=== PATIENT | male | born 1935 | race Caucasian/White ===

== ENCOUNTER 2016-10-22 18:27 | Emergency (ER) | payer MEDICARE, OTHER ==
--- NOTE | 2016-10-22 18:44 | EDM.PDOC ---
ED HPI Trauma - General Chief Complaint: General Stated Complaint: WRIST INJURY Time Seen by Provider: 10/22/16 18:30 Source: Reports: Patient, Family History Limitations: Reports: No limitations - History of Present Illness INITIAL COMMENTS - FREE TEXT/NARRATIVE: Mary was removing a sliding screen door 1 day ago when the door fell striking onto the dorsum of L hand. He did not fall, and there was no LOC. There has been some progressive achiness of the L hand radiating into the L wrist and forearm today, without weakness or numbness. He has tried no meds. Allergies/ADRs: Allergies No Known Allergies Allergy (Verified 10/22/16 18:53) Home Medications: Ambulatory Orders . [Unable to Verify Home Med List] 10/22/16 [Confirmed 10/22/16] Review of Systems - Review of Systems Review Of Systems: See Below Constitutional: Reports: no symptoms Eyes: Reports: no symptoms Ears: Reports: no symptoms Nose: Reports: no symptoms Mouth/Throat: Reports: no symptoms Respiratory: Reports: No Symptoms Cardiovascular: Reports: no symptoms GI/Abdominal: Reports: No symptoms Genitourinary: Reports: no symptoms Musculoskeletal: Reports: hand pain (left, radiating into L wrist and forearm) Skin: Reports: bruising (nose and lip from brushing) Neurological: Reports: No Symptoms Psychiatric: Reports: no symptoms Trauma Exam - Physical Exam Exam: See Below Exam Limited By: No limitations General Appearance: Reports: alert, WD/WN, no apparent distress Head: Reports: normocephalic, facial abrasions (nose and lip from brushing) Neck: Reports: non-tender, full range of motion, normal alignment, normal inspection Respiratory Exam: Reports: lungs clear Cardiovascular: Reports: regular rate, rhythm Back: Reports: full range of motion, normal inspection Extremities: Reports: normal range of motion, tenderness (mild tenderness w ecchymoses of L hand, FROM of L wrist and forearm and elbow) Neurologic: Reports: nozzle tender II-XII nml as tested, no motor/sensory deficits, alert , normal mood/affect Skin: Reports: Normal color, Warm/dry, Ecchymosis Course - Vital Signs Text/Narrative:: Following admission to the [facility] ED, x rays of L hand and wrist were negative for fx, with minor OA changes detected. Last Recorded V/S: Last Vital Signs Temp 37.1 C 10/22/16 18:46 Pulse 61 10/22/16 18:46 Resp 14 10/22/16 18:46 BP 125/61 10/22/16 18:46 Pulse Ox 98 10/22/16 18:46 - Orders/Labs/Meds Orders: Active Orders 24 hr Category Date Time Status Hand Comp Min 3V Lt [CR] Stat Exams 10/22/16 18:38 Taken Departure - Departure Time of Disposition: 19:20 Disposition: Home, Self-Care 01 Condition: fair Clinical Impression: Contusion of left hand, initial encounter Qualifiers: Encounter type: initial encounter Qualified Code(s): S60.222A - Contusion of left hand, initial encounter Referrals: Jluis Kowalski MD [Primary Care Provider] - Forms: ED Department Discharge - Problem List & Annotations (1) Contusion of left hand, initial encounter SNOMED Code(s): 1661822 Code(s): S60.222A - CONTUSION OF LEFT HAND, INITIAL ENCOUNTER Status: Acute Current Visit: Yes Annotation/Comment:: Simple contusion to L hand, with radiation of pain to LUE, managed with cool packs, gentle ROM, and NSAIDs. Qualifiers: Encounter type: initial encounter Qualified Code(s): S60.222A - Contusion of left hand, initial encounter - Problem List Review Problem List Initiated/Reviewed/Updated: Yes - My Orders Last 24 Hours: My Active Orders 10/22/16 18:38 Hand Comp Min 3V Lt [CR] Stat - Assessment/Plan Last 24 Hours: My Active Orders 10/22/16 18:38 Hand Comp Min 3V Lt [CR] Stat Plan: Follow up with PCP if needed.
[2016-10-22 18:53] VITALS: BP 125/61
--- NOTE | 2016-10-25 10:47 | CR ---
INDICATION: Falling screen door struck dorsal aspect left hand. LEFT HAND: Three views of the left hand were obtained and revealed osteoarthritic changes in the joints of the hand, especially the navicular multangular joints, first metacarpal carpal joint, second and third metacarpophalangeal joints and DIP joints most prominently at the second, third , and fifth fingers. A definite fracture site or dislocation was not identified, however. Adjacent to the navicula, there is a small rounded probable calcific density which likely is due to dystrophic soft tissue calcification from previous injury. Additional similar calcifications are noted at the lateral aspect of the first metacarpal carpal joint and the interphalangeal joint of the thumb. IMPRESSION: 1. No acute fracture or dislocation. 2. Osteoarthritis. MTDD
== END 2016-10-22 19:26 | disposition home or self-care (01) ==
LOC: FB.ED 18:27
DX: S60.222A Contusion of left hand, initial encounter (principal); W22.8XXA Striking against or struck by other objects, initial encounter
CPT/HCPCS: 73130-LT; 99282; 99283

== ENCOUNTER 2022-09-16 14:51 | Emergency (ER) | payer MEDICARE, OTHER ==
[2022-09-16] MEDS ORDERED: ceFAZolin 1 GM Vial IVPUSH ONE (16:28)
[2022-09-16] MEDS ORDERED: Sodium Chloride 0.9% 10 ML Syringe FLUSH PRN (16:28)
[2022-09-16 16:57] LABS: ESTIMATED GFR 54 mL/min (>60)
[2022-09-16] MEDS ORDERED: Morphine 2 MG/ML SYRINGE IVPUSH ONE (17:08)
[2022-09-16 18:54] VITALS: BP 107/65; PULSE 51
== END 2022-09-16 18:00 ==
LOC: FB.ED 14:51
DX: S61.411A Laceration without foreign body of right hand, initial encounter (principal); S52.201A Unspecified fracture of shaft of right ulna, initial encounter for closed fracture; X58.XXXA Exposure to other specified factors, initial encounter
CPT/HCPCS: 36415; 73090; 73130; 80053; 85025; 85610; 85730; 93005; 96374; 96375; 99284; J0690; J2270; J3490